=== PATIENT | male | born 1990 | race Two or more races ===

== ENCOUNTER 2023-12-05 09:27 | Outpatient (CLI) | payer BC, OTHER, SELFPAY ==
--- NOTE | 2023-12-05 09:30 | ECG_ITS ---
APPROVED REPORT Exam: Resting ECG HR:62 bpm ECG Measurements Heart Rate 62 AXES VA 144 P 67 QRSd 94 QRS 70 QT 327 T 66 QTc 333 Conclusion SINUS RHYTHM normal ECG UNCONFIRMED REPORT Electronically signed by : Adria Jaquez MD 12/06/2023 13:42:14
--- NOTE | 2023-12-05 09:59 | XR_ITS ---
FINAL REPORT TECHNIQUE: Chest PA & Lateral CLINICAL HISTORY: pre-operative testing, foot sx COMPARISON: None FINDINGS: 2 views of the chest were performed. The heart size is normal. The mediastinum is within normal limits. There is no acute cardiopulmonary process. There are no pleural effusions. There is no pneumothorax. The bony thorax appears intact. IMPRESSION: No acute cardiopulmonary process. Reviewed, Interpreted and Dictated by Kishore Rae MD Transcribed by Chelsey Fuller Authenticated and [facility]
[2023-12-05 10:03] LABS: Basophils # 0.1 K/mm3 (0-0.2); Eosinophils # 0.3 K/mm3 (0.0-0.4); Eosinophils % 4.5 % (0.1-12.0); Hematocrit 47.2 % (42.0-52.0); Hemoglobin 16.3 g/dL (14.1-18.0); Lymphocytes # 1.9 K/mm3 (0.7-4.5); Lymphocytes % 35.1 % (10-50); Mean Corpuscular HGB Conc 34.5 g/dL (31.8-35.4); Mean Corpuscular Hemoglobin 29.1 pg (27.0-31.2); Mean Corpuscular Volume 84.5 fl (80-94); Monocytes # 0.4 K/mm3 (0.1-1.0); Monocytes % 7.8 % (1.7-9.3); Neutrophils # 2.8 K/mm3 (1.8-7.8); Neutrophils % 51.5 % (37.0-80.0); Platelet Count 195 K/mm3 (142-424); Red Blood Count 5.59 M/mm3 (4.60-6.20); Red Cell Distribution Width 13.5 % (11.5-17.5); White Blood Count 5.5 K/mm3 (4.8-10.8)
[2023-12-05 10:56] LABS: Alanine Aminotransferase 30 U/L (12-78); Albumin Level 4.7 g/dl (3.5-5.0); Albumin/Globulin Ratio 1.9 (1.1-1.8); Alkaline Phosphatase 57 U/L (38-126); Anion Gap 12.3 mEq/L (5-15); Aspartate Amino Transferase 30 U/L (17-59); Bilirubin,Total 1.4 mg/dl (0.2-1.3); Blood Urea Nitrogen 16 mg/dl (9-20); Calcium 9.8 mg/dl (8.4-10.2); Carbon Dioxide 30 mmol/L (22.0-30.0); Chloride 103 mmol/L (98-107); Estimated Glomerular Filt Rate 112 ml/min (>60); GFR (African American) 136 ML/MIN (>60); Globulin 2.5 g/dL (1.3-3.2); Glucose 87 mg/dl (74-100); Potassium 4.3 mmoL/L (3.5-5.1); Sodium 141 mmol/L (136-145); Total Protein,Serum 7.2 g/dl (6.3-8.2)
== END 2023-12-05 23:59 ==
PROVIDERS: Visit Provider Podiatrist
DX: Z01.818 Encounter for other preprocedural examination (principal); M79.672 Pain in left foot
CPT/HCPCS: 71046; 80053; 85025; 93005

== ENCOUNTER 2024-01-09 08:18 | Day surgery (SDC) | payer BC, OTHER, SELFPAY ==
[2024-01-09] VITALS (10 sets, daily range): BP systolic 125–148; BP diastolic 81–90; PULSE 67–99; RESP 12–20; TEMP 36.1–36.7; O2SAT 98–100
--- NOTE | 2024-01-09 09:11 | PC.NURSE ---
Greg bucket turner used for entire preop process
[2024-01-09] MEDS: LACTATED RINGERS 1000ML 1,000 ML 100 ML IV (09:12)
--- NOTE | 2024-01-09 11:25 | SUR.PREOP ---
Vibration Analyst was used again as Dr Gutiérrez interviewed and explained procedure, complications, risks and benefits involved. Patient understood and stated no questions or concerns Radha CHAMBERLAIN interviewed and explained anesthesia and block technique and patient was agreeable to proceed Maia Thayer RN surgery nurse interviewed and patient was agreeable to proceed with his surgery. Vibration Analyst asked if patient had any questions or concerns for any of the staff and patient denies any concerns or questions at this time.
--- NOTE | 2024-01-09 12:34 | P.PNANES_ITS ---
[facility] Anesthesia Record Part I Anesthesia Record I Intake, IV Amount: 1,500 Hydration: Adequate Estimated blood loss (mL): 0 Urine output (mL): 0 Blood Pressure: 148/83 SaO2: 99 Pulse Rate: 99 Airway Patency: Patent Respiratory Rate: 12 Temperature: 97.5 F Patient is:: Awake and Stable Stable to PACU at:: 12:34
--- NOTE | 2024-01-09 12:40 | P.OP_ITS ---
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 Surgeon:: Carlos Gutiérrez DPM DOWEL INSPECTOR:: Janes Alfaro Anesthesia: GETA Estimated blood loss (mL): 4 Operative findings:: Two distinct large fibromas within plantar fascia medial band left foot Operative note:: Patient seen in the preop holding area. Discussed with the patient the planned procedure(s). Reviewed Consent; and confirmed the plan of care with the patient. Opportunity was provided to ask questions and concerns. Greg speaking insurance policy clerk was ONLINE with the entire team (Nurses, anesthesia, post op nurse, womens health nurse practitioner, and myself). Signed the surgical site with marking pen. Patient was wheeled to the operating room per staff and anesthesia. Anesthesia blocked the patient/began anesthesia on patient. Foot was scrubbed, prepped, and draped in usual aseptic manner. [place] bandage used to exsanguinate the foot; and tourniquet was inflated to 250mmHg midcalf level left side. Curvilinear incision was made on plantar foot, bisecting between the large palpable plantar fibromas, in efforts to reduce skin tension when healing post operatively. Deepened through subcutaneous tissues; bleeders cauterized as necessary. Protected vital neurovascular structures during dissection. Identified the medial and central bands of the plantar fascia and the large fibromas with the medial band. Freed fascia from underlying muscle and subcutaneous fat. Transected at distal end; dissected proximally and radically resected the medial band of the plantar fascia cleanly with scalpel and scissors. Irrigated with saline. Closed the wound with 2-0 Vicryl, 3-0 Vicryl; then skin coapted with 2-0 Nylon and 3-0 Nylon. Released tourniquet; prompt hyperemic response noted. Dressed with Xeroform gauze, gauze, ABD, Kerlix; well padded posterior splint. Wheeled to PACU/recovery with vital signs stable. Tourniquet time (min): 60 Condition: stable Disposition: PACU Specimens:: Gross only: Plantar fascia, with fibromas Complications:: negative
--- NOTE | 2024-01-09 13:32 | SUR.PHASEII ---
Php Programmer Earl used to translate DC instructions.
--- NOTE | 2024-01-09 14:25 | EXP.ANES.II ---
[facility] Anesthesia Record Part II Anesthesia Record Part II Discharge Time: 13:04 Destination: Surgical Day Care (OP Surgery) PACU nurse assessment reviewed?: Yes Patient Condition:: Good Anesthesia Complications:: None Swallowing reflex intact?: Yes Airway Patency: Patent Cyanosis?: No Blood Pressure: 142/90 SaO2: 98 Respiratory Rate: 16 Pulse Rate: 88 Temperature: 97.5 F Mental Status: Alert & Oriented Pain level:: 0 Nausea and/or vomitting:: None Intake, IV Amount: 0 Hydration: Adequate
== END 2024-01-09 13:35 | disposition home or self-care (01) ==
PROVIDERS: Visit Provider Podiatrist
PROC: (CPT 28062; principal; 2024-01-09 10:45)
DX: M79.672 Pain in left foot (principal); D21.22 Benign neoplasm of connective and other soft tissue of left lower limb, including hip; M72.2 Plantar fascial fibromatosis; Z55.6 Problems related to health literacy; Z60.8 Other problems related to social environment
CPT/HCPCS: 28062; J2405